=== PATIENT | female | born 1955 | race Caucasian/White ===

== ENCOUNTER 2017-01-19 18:34 | Emergency (ER) | payer OTHER ==
[~2017-01-19] VITALS: Wt 80.0 kg
[~2017-01-19 18:34] MED LIST: ATENOLOL; ATORVASTATIN; LISINOPRIL; METFORMIN
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
[2017-01-19 19:18] LABS: URINE BLOOD (Dip) POC Trace-lysed (NEGATIVE)
[2017-01-19] MEDS ORDERED: ACETAMINOPHEN 325 MG TAB PO ONE (19:30)
[2017-01-19] MEDS ORDERED: KETOROLAC 15 MG INJ IM ONE (19:30)
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
[2017-01-19] MEDS ORDERED: IBUP400T22 PO (20:49)
[2017-01-19] MEDS ORDERED: DIAZ-90 PO (20:50)
[2017-01-19 21:20] VITALS: BP 170/86; PULSE 78; RESP 17
== END 2017-01-19 21:25 | disposition home or self-care (01) ==
LOC: FTE 18:34
DX: S20.212A Contusion of left front wall of thorax, initial encounter (principal); I10 Essential (primary) hypertension; E11.9 Type 2 diabetes mellitus without complications; V49.50XA Passenger injured in collision with unspecified motor vehicles in traffic accident, initial encounter; Z79.84 Long term (current) use of oral hypoglycemic drugs
CPT/HCPCS: 71100; 81003; 82962; J1885; Z7610; 93005; 96372